=== PATIENT | male | born 1995 | race African-American/Black ===

== ENCOUNTER 2023-02-09 08:34 | Emergency (ER) | payer OTHER ==
[2023-02-09 09:19] LABS: #Eosinphils 0.2 10x3/uL (0.0-0.5); #Monocytes 0.6 10x3/uL (0.0-1.1); %Basophils 0.4 % (0.0-2.0); %Eosinophils 1.9 % (0.0-6.0); %Lymphocytes 20.8 % (18.0-47.0); %Monocytes 6.9 % (0.0-10.0); %Neutrophils 69.8 % (40.0-75.0); Hemoglobin 14.1 g/dL (13.5-17.5); Mean Corpuscular HGB CONC 32.9 g/dL (32.0-36.0); Mean Corpuscular Hemoglobin 28.5 pg (27.0-33.0); Mean Corpuscular Volume 86.8 fl (81.2-95.1); Mean Platelet Volume 8.4 fl (7.4-10.4); Platelet Count 353 10x3/uL (150-450); RBC Distribution Width 12.1 % (11.5-14.5); Red Blood Cell (RBC) Count 4.94 10x6/uL (4.32-5.72); White Blood Cell (WBC) Count 8.5 10x3/uL (3.5-10.5)
[2023-02-09 09:35] LABS: Bilirubin Neg (Negative); Blood, Urine Negative (Negative); Clarity Clear (Clear); Glucose, Urine (Dipstick) Normal (Negative); Ketone, Urine Negative (Negative); Leukocyte Negative (Negative); Nitrite Negative (Negative); Protein, Urine (Dipstick) Negative (Neg-Trace); Urobilinogen Normal mg/dL (Less than 2)
[2023-02-09 09:35] LABS: ALT (SGPT) 33 U/L (8-55); AST (SGOT) 21 U/L (5-34); Albumin 3.6 g/dL (3.5-5.0); Alkaline Phosphatase 71 U/L (40-110); Anion Gap 12 mmol/L (10-20); BUN (Urea Nitrogen) 9 mg/dL (8.9-20.6); Bilirubin, Total 0.7 mg/dL (0.2-1.2); Calc. Creatinine Clearance 0 mL/min (70-130); Calcium 8.4 mg/dL (7.8-10.44); Carbon Dioxide 24 mmol/L (22-29); Chloride 108 mmol/L (98-107); Estimated GFR 124; Globulin 3.4 g/dL (2.4-3.5); Glucose 101 mg/dL (70-105); Lipase 8 U/L (8-78); Potassium 4.2 mmol/L (3.5-5.1); Sodium 140 mmol/L (136-145)
[2023-02-09] MEDS ORDERED: Morphine 4 MG/ML VIAL ONE (10:47)
[2023-02-09] MEDS ORDERED: Ondansetron PF 4 MG/2 ML Vial ONE ×2 (10:48→10:51)
[2023-02-09] MEDS ORDERED: Ketorolac Tromethamine 30 MG/ML VIAL ONE (10:48)
[2023-02-09] MEDS ORDERED: Iopamidol 300 61% 100 ML VIAL FS ONE (12:24)
== END 2023-02-09 11:50 | disposition home or self-care (01) ==
LOC: CSHERS 08:34
DX: K43.6 Other and unspecified ventral hernia with obstruction, without gangrene (principal)
CPT/HCPCS: 74177; 80053; 81003; 83605; 83690; 85025; 96374; 96375; J1885; J2270; J2405; Q9967